=== PATIENT | male | born 1960 | race Caucasian/White ===

== ENCOUNTER 2024-03-25 11:49 | Observation (INO) | payer OTHER, SELFPAY ==
--- NOTE | ~2024-03-25 | MR_ITS ---
EXAMINATION: MR brain/brain stem wo/w con DATE: 03/26/2024 07:59 INDICATION: Intermittent left-sided numbness. TECHNIQUE: Magnetic resonance imaging (MRI) of the brain and brainstem was performed without and with 12 mL MultiHance intravenous contrast. COMPARISON: Head CT 03/25/2024 FINDINGS: There are scattered areas of nonspecific increased T2-weighted signal intensity in the cere bral white matter, deep olvera nuclei, and navi. There is an old infarct in the left thalamus. There is an acute infarct involving the posterior limb right internal capsule and right thalamus. There is an old infarct in the left occipital lobe. There is no intracranial hemorrhage or abnormal intracranial mass lesion. The ventricles are normal in size. The orbits are normal. The paranasal sinuses are zaheer ar. The mastoid air cells are normal. IMPRESSION: 1. Acute infarct involving the posterior limb right internal capsule and right thalamus. 2. Old infarcts in the left thalamus and left occipital lobe. 3. Mild nonspecific cerebral white matter disease and disease of the deep brain nuclei and navi, whic h likely represents chronic small vessel ischemic disease. Reviewed, dictated and finalized at location A. IMPRESSION: 1. Acute infarct involving the posterior limb right internal capsule and right thalamus. 2. Old infarcts in the left thalamus and left occipital lobe. 3. Mild nonspecific cerebral white matter disease and disease of the deep brain nuclei and navi, which likely represents chronic small vessel ischemic disease .
--- NOTE | ~2024-03-25 | CT_ITS ---
EXAMINATION: CTA brain carotid DATE: 03/25/2024 16:29 INDICATION: Transient ischemic attack. TECHNIQUE: Computed tomographic angiography (CTA) of the head was performed with 100 mL Omnipaque-350 intravenous contrast. CTA of the neck was performed with intravenous contrast. Automated exposure co ntrol and iterative reconstruction technique were employed. The dose-length product was 996.21 mGy-cm . Maximum intensity projection and volume rendered 3D-reconstructions were created by the [employer] t on a separate workstation. COMPARISON: Head CT 03/25/2024 FINDINGS: HEAD CTA: There are scattered areas of low attenuation in the cerebral white matter. There is no intr acranial hemorrhage, acute infarction, or abnormal intracranial mass lesion. The ventricles are shubham l in size. There is mild mucosal thickening in the paranasal sinuses. The orbits are normal. The mast oid air cells are normal. The vertebral arteries are codominant. There is no significant stenosis of basilar artery or the posterior cerebral arteries. There is no significant stenosis of the intracrani al internal carotid arteries or anterior or middle cerebral arteries. Anterior communicating artery i s normal. The posterior communicating arteries are normal. There is no aneurysm. NECK CTA: There is mild emphysema. There are no pathologically enlarged lymph nodes. There is no sign ificant stenosis of the vertebral arteries. There is plaque in the proximal internal carotid arteries . There is 0% stenosis of the proximal right internal carotid artery relative to normal distal artery lumen diameter (NASCET criteria). There is 0% stenosis of the proximal left internal carotid artery relative to normal distal artery lumen diameter. There is severe cervical spondylosis. There is anter ior and posterior fusion at C4-C5 and T2-T3. IMPRESSION: 1. Mild nonspecific cerebral white matter disease, which likely represents chronic small vessel ische zachary disease. 2. No aneurysm or significant intracranial arterial stenosis. 3. 0% stenosis of the proximal internal carotid arteries relative to normal distal artery lumen diame ters (NASCET criteria). Reviewed, dictated and finalized at location A. IMPRESSION: 1. Mild nonspecific cerebral white matter disease, which likely represents precision assembler mary small vessel ischemic disease. 2. No aneurysm or significant intracranial arterial stenosis. 3. 0% stenosis of the proximal internal carotid arteries relative to normal dis ezekiel artery lumen diameters (NASCET criteria).
--- NOTE | ~2024-03-25 | CT_ITS ---
EXAMINATION: CT brain wo con DATE: 03/25/2024 13:19 INDICATION: Transient ischemic attack. TECHNIQUE: Computed tomography (CT) of the head was performed without intravenous contrast. The mA wa s adjusted according to patient size. Iterative reconstruction technique was employed. The dose-lengt h product was 605.33 mGy-cm. COMPARISON: Head CT 05/05/2012 FINDINGS: There are scattered areas of low attenuation in the cerebral white matter. There is no intr acranial hemorrhage, acute infarction, or abnormal intracranial mass lesion. The ventricles are shubham l in size. There is mild mucosal thickening in the paranasal sinuses. The orbits are normal. The mast oid air cells are normal. IMPRESSION: 1. Mild nonspecific cerebral white matter disease, which likely represents chronic small vessel ische zachary disease. Reviewed, dictated and finalized at location A. IMPRESSION: 1. Mild nonspecific cerebral white matter disease, which likely represents injection specialist mary small vessel ischemic disease.
--- NOTE | ~2024-03-25 | XR_ITS ---
Clinical Indication: Left-sided weakness PA and lateral views of the chest: Comparison: None Findings: Calcified right midlung granuloma present. The lungs are otherwise clear, without evidence of focal consolidation or pleural effusion. Cardiomediastinal silhouette is within normal limits. Ramon christiano and soft tissues are unremarkable. Impression: No significant abnormality. Reviewed, dictated and finalized at location . Impression: No significant abnormality.
[2024-03-25 11:58] VITALS: BP 157/90; PULSE 81; RESP 22; TEMP 36.7; O2SAT 94
--- NOTE | 2024-03-25 12:01 | ECG_ITS ---
Test Date: 2024-03-25 12:00:40 Measurements Intervals [place] Rate: 75 P: 68 MA: 148 QRS: 41 QRSD: 87 T: 62 QT: 355 QTc: 397 Interpretive Statements SINUS RHYTHM MINIMAL VOLTAGE CRITERIA FOR LVH, CONSIDER NORMAL VARIANT [MEETS CRITERIA IN ONE OF: R(aVL), S(V1), R(V5), R(V5/V6)+S(V1)] No previous ECG available for comparison Electronically Signed On 03-25-2024 18:59:13 CDT by Roverto Cary D.O.
[2024-03-25 12:09] LABS: Glucose Point of Care 103 mg/dl (65-105)
[2024-03-25 12:14] LABS: Basophils Absolute Auto 0.1 K/mm3 (0.0-0.1); Basophils Percent Auto 0.6 % (0.2-1.2); Eosinophils Absolute Auto 0.2 K/mm3 (0-0.3); Eosinophils Percent Auto 2.6 % (0-4.4); Hematocrit 45.4 % (42.0-52.0); Hemoglobin 15.8 g/dL (14.0-18.0); Immature Granulocyte Absolute 0.02 K/mm3 (0.00-0.031); Immature Granulocyte Percent A 0.3 % (0-0.5); Lymphocytes Absolute Auto 3.16 K/mm3 (0.9-3.2); Lymphocytes Percent Auto 40.8 % (18.3-44.2); Mean Corpuscular HGB Conc 34.8 g/dl (32-36); Mean Corpuscular Hemoglobin 33.8 pg (26-34); Mean Corpuscular Volume 97.2 fl (80-100); Mean Platelet Volume 9.2 fl (7.4-10.4); Monocytes Absolute Auto 0.5 K/mm3 (0.1-0.6); Monocytes Percent Auto 6.6 % (2.6-8.5); Neutrophils Absolute Auto 3.8 K/mm3 (1.3-6.7); Neutrophils Percent Auto 49.1 % (45.5-73.1); Platelet Count Result 218 k/mm3 (150-375); Red Blood Count 4.67 M/mm3 (4.6-6.20); Red Cell Distribution Width 13.4 % (11.5-14.5); White Blood Count 7.7 K/mm3 (4.5-10.0)
[2024-03-25 12:23] LABS: Alanine Aminotransferase 14 U/L (6-50); Albumin Level 4.4 g/dL (3.5-5.1); Alkaline Phosphatase 82 U/L (38-126); Anion Gap 6 mmol/L (4-12); Aspartate Amino Transferase 25 U/L (17-59); Bilirubin,Total 0.7 mg/dL (0.2-1.3); Blood Urea Nitrogen 14 mg/dL (9-20); Calcium 9.1 mg/dL (8.4-10.2); Carbon Dioxide 26 mmol/L (22-30); Chloride 104 mmol/L (98-107); Estimated Glomerular Filt Rate > 60; Glucose 106 mg/dL (65-110); Sodium 136 mmol/L (137-145)
[2024-03-25 12:26] LABS: INR 1.1; Prothrombin Time 14.1 Seconds (11.1-14.7)
[2024-03-25 12:27] LABS: Partial Thromboplastin Time 31.4 Seconds (22.3-36.8)
--- NOTE | 2024-03-25 15:16 | PC.NURSE ---
Patient states he is currently feeling tingling from his left elbow down to his fingers at this time. patient states at 1000 this morning he felt numbness and tingling in the left arm and leg and that has since resolved. patient has equal talent acquisition program manager strength and no drift in arms or legs, but states the left foot feels a little heavy .
[2024-03-25 15:17] VITALS: PULSE 64; RESP 19; O2SAT 99
--- NOTE | 2024-03-25 15:31 | ED.GENADULT ---
HPI - General Adult General Chief complaint: Neuro Symptoms/Deficit Stated complaint: neuro symptoms, LNK 1000 this AM Time Seen by Provider: 03/25/24 15:11 History of Present Illness HPI narrative: Patient is a 63-year-old male who presents to the emergency department this afternoon complaining of TIA like symptoms. Patient states that today around 10:00 a.m. he noticed some numbness and tingling to his left upper and lower extremity and his lips. Patient states that this lasted a few minutes and resolved but then came back again approximately 1 hour prior to arrival. Patient admits that he does have a history of a stroke and is supposed to be on a blood thinner, unsure which 1 and admits that he has not taking it in months as he does a lot of hand work using tools and the blood thinner was causing him to bleed a lot due to the frequent cutting his that he gets from his work. Patient states that he is supposed to also be on the aspirin which he takes intermittently but not daily. Patient denies any focal weakness, states that he did have some issues with his balance when he 1st got to the emergency department, denies any wound spinning sensation, denies any headache or changes to his vision. No chest pain or shortness of breath. No nausea or vomiting or abdominal pain. No additional symptoms or concerns at this time. Related Data Allergies Allergy/AdvReac Type Severity Reaction Status Date / Time No Known Allergies Allergy Unknown Unverified 01/10/18 12:00 Review of Systems Review of Systems: All systems are reviewed and are negative unless stated otherwise in the HPI. [facility] Family History Family History Mother Acute myocardial infarction Social History Social History Alcohol intake: current Exam Narrative: General: Alert, awake, afebrile, in no acute distress. HEENT: PERRL, no rhinorrhea, no post nasal drip, oropharynx clear. Cardiovascular: Regular rate and rhythm, no murmurs, rubs or gallops, no peripheral edema. Respiratory: Clear to auscultation bilaterally, no tachypnea, no wheezing, no rhonchi, no rubs, no respiratory distress. Abdomen: Soft, nontender, nondistended, no rebound, no guarding, no peritoneal signs. Musculoskeletal: No joint swelling or deformity, normal muscle tone. Skin: No rashes or petechia, no signs of infection. Neurological: Alert and oriented to person, place, and time. Follows all commands. 5/5 motor strength strength in the bilateral upper and lower extremity, sensation intact in the bilateral lower and upper extremity, cranial nerves 2-12 grossly intact, speech is clear and fluent. Course Vital Signs Vital signs: Vital Signs Temperature 98.1 F 03/25/24 11:58 Pulse Rate 81 03/25/24 11:58 Respiratory Rate 22 H 03/25/24 11:58 Blood Pressure 157/90 H 03/25/24 11:58 Pulse Oximetry 94 03/25/24 11:58 Temperature 98.1 F 03/25/24 11:58 Pulse Rate 64 03/25/24 15:17 Respiratory Rate 19 03/25/24 15:17 Blood Pressure 157/90 H 03/25/24 11:58 Pulse Oximetry 99 03/25/24 15:17 Medical Decision Making [facility] Narrative Medical decision making narrative: The patient was evaluated by myself in the emergency department. History is obtained from patient who is an independent historian and physical exam was performed. External medical records were reviewed at this time. IV was established and pertinent tests were ordered. EKG was obtained which revealed sinus rhythm rate of 75 beats per minute, no evidence of acute ischemia. EKG was independently interpreted by me and is currently pending official cardiology read. Laboratory results obtained revealing no acute process. Imaging studies obtained included CT brain without IV contrast and portable chest x-ray which was independently interpreted by me revealing no acute process, which is pending final r
[2024-03-25 16:52] LABS: Add Urine Microscopic? YES; Appearance Urine Clear (Clear); Bacteria Urine None Seen /hpf; Bilirubin Urine Negative (Negative); Blood Urine Negative (Negative); Color Urine Dark Yellow (Yellow); Glucose Urine UA Negative (Negative); Hyaline Casts Urine Present /lpf; Ketones Urine Trace mg/dL (Negative); Leukocyte Esterase Ur Negative LEU/UL (Negative); Nitrate Urine Negative (Negative); Non Pathogenic Casts 0-2; Protein Urine Trace mg/dL (Negative); Squamous Epithelial Cell Urine None Seen /hpf (Few); WBC Urine 0-5 /hpf (0-3); pH Urine 5.5 (5.0-9.0)
[2024-03-25] MEDS: ASPIRIN 81 MG CHEWABLE TABLET 324 MG PO (17:14)
--- NOTE | 2024-03-25 18:00 | ADMGEN ---
This patient, Cooper Don, was admitted to Medical Room 343-01. Patient/family oriented to hospital policies and general routines including ID bracelet, bed and alarms, visiting hours, pain management, procedures, bathroom and other care routines, personal items, smoking policy, room service/diet, and visiting hours. Information on how to activate the Rapid Response Team has been discussed. Patient/Family are encouraged to report perceived risks to care and to ask questions if they do not understand what they are told or what they should do.
[2024-03-25 18:30] VITALS: BMI 22.2
[2024-03-25 18:38] VITALS: BP 136/73; PULSE 76; RESP 18; TEMP 36.8; O2SAT 100; BMI 20.5
[2024-03-25 20:00] VITALS: PULSE 75
--- NOTE | 2024-03-25 21:01 | PM.IMHP ---
H&P: HPI History of Present Illness Date/Time: 03/25/24 21:01 Chief Complaint: Focal Numbness Narrative: 63 y/o M presents here with intermittent left sided numbness with PMH of CVA (2022 or 2021, no residual deficits), HLD, BPH, and kidney stones. The patient presents here from home for further evaluation of left-sided numbness and tingling. Patient reports initially developing oral numbness and instability while standing at 10:00 am, symptoms lasted for less than 5 minutes and resolved without intervention. Then around 11:20 am he developed the oral numbness and dizziness that was worse than initial episode. Patient then became concerned and alerted his family member to his symptoms who drove him to the hospital. Patient reports he arrived here around 11:45. While exiting the vehicle he was very off balance and his daughter had to catch him/steady him. While in waiting room he was able to ambulate to the restroom without difficulty. During ED evaluation the numbness spread to his entire right upper extremity and whole right lower extremity. Symptoms would intermittently resolve, but never completely. Currently experiencing difficulty with balance, left hip and calf numbness. Patient also having a difficult time gripping items in his left hand. Denies dysarthria, vision changes, or headache. Initial VS at presentation: 98.1? F, HR 81, RR 22, 157/90, and 94% on RA. ED workup showed: No leukocytosis, no anemia, normal coags, no significant electrolyte derangements, creatinine 0.9 and GFR >60, UA showed trace ketones and 3-5 RBC otherwise unremarkable. CXR showed no significant abnormality. Head CT showed mild nonspecific cerebral white matter disease. CTA of the head/neck showed mild nonspecific cerebral white matter disease, no aneurysm or significant intracranial arterial stenosis, and serous % stenosis of the proximal ICAs. Review of Systems Review of Systems: All systems reviewed & are unremarkable except as noted in HPI and below PMFSH Past Medical History Medical History BPH (benign prostatic hyperplasia) CVA (cerebral vascular accident) HLD (hyperlipidemia) Kidney stones TIA (transient ischemic attack) Family History Family History Mother Acute myocardial infarction Father Social History Social History Smoking packs per day: 1 Smoking cigarettes per day: 20.0 Years smoked: 50 Smoking pack-years: 50.00 Smoking status: Current every day smoker Tobacco type: cigarettes Alcohol intake: current Substance use: current Substance use type: marijuana and inhalants Last use: 03/25/24 Do You Feel Safe in your Home?: Yes Lack of Transportation: No Lack of Food: Never True Current Housing: I Have Housing Concerned About Future Housing: No Difficulty Paying Gas/Electric Bills: No Difficulty Paying for Meds: No Currently Unemployed: No Education: High School Diploma/GED Difficulty w/ Childcare or Family Care: No Spiritual care concerns: No Meds Home Medications and Allergies Home Medications Medication Instructions Recorded Confirmed Type No Home Medications 03/25/24 03/25/24 History Allergies Allergy/AdvReac Type Severity Reaction Status Date / Time No Known Allergies Allergy Unknown Unverified 01/10/18 12:00 Vital Signs Vital Signs - 24 hr 03/25/24 11:58 03/25/24 15:17 03/25/24 18:38 Temperature 98.1 F 98.3 F Pulse Rate 81 64 76 Respiratory Rate 22 H 19 18 Blood Pressure 157/90 H 136/73 Pulse Oximetry 94 99 100 Oxygen Delivery 03/25/24 18:45 Temperature Pulse Rate Respiratory Rate Blood Pressure Pulse Oximetry Oxygen Delivery Room Air Exam Const: General: comfortable and no acute distress Other: , male, nontoxic appearance
[2024-03-25 21:55] VITALS: BP 149/85; PULSE 95; RESP 20; TEMP 36.8; O2SAT 95
[2024-03-25] MEDS: NICOTINE (*PBKC) 14 MG PATCH 1 PATCH TRANSDERM (22:23)
[2024-03-25 22:47] VITALS: O2SAT 95
[2024-03-26] VITALS: PULSE 73
[2024-03-26 01:03] LABS: Hemoglobin A1C 5.5 % (<5.7)
[2024-03-26 04:00] VITALS: PULSE 67
[2024-03-26 05:51] LABS: Basophils Absolute Auto 0.1 K/mm3 (0.0-0.1); Basophils Percent Auto 0.7 % (0.2-1.2); Eosinophils Absolute Auto 0.3 K/mm3 (0-0.3); Eosinophils Percent Auto 4.6 % (0-4.4); Hematocrit 43.8 % (42.0-52.0); Hemoglobin 15.1 g/dL (14.0-18.0); Immature Granulocyte Absolute 0.02 K/mm3 (0.00-0.031); Immature Granulocyte Percent A 0.3 % (0-0.5); Lymphocytes Absolute Auto 3.28 K/mm3 (0.9-3.2); Lymphocytes Percent Auto 45.9 % (18.3-44.2); Mean Corpuscular HGB Conc 34.5 g/dl (32-36); Mean Corpuscular Hemoglobin 33.6 pg (26-34); Mean Corpuscular Volume 97.3 fl (80-100); Mean Platelet Volume 9.5 fl (7.4-10.4); Monocytes Absolute Auto 0.6 K/mm3 (0.1-0.6); Monocytes Percent Auto 7.7 % (2.6-8.5); Neutrophils Absolute Auto 2.9 K/mm3 (1.3-6.7); Neutrophils Percent Auto 40.8 % (45.5-73.1); Platelet Count Result 215 k/mm3 (150-375); Red Cell Distribution Width 13.4 % (11.5-14.5); White Blood Count 7.1 K/mm3 (4.5-10.0)
[2024-03-26 06:00] VITALS: BP 159/79; PULSE 73; RESP 20; TEMP 36.6; O2SAT 99
[2024-03-26 06:01] LABS: Alanine Aminotransferase 12 U/L (6-50); Alkaline Phosphatase 80 U/L (38-126); Anion Gap 8 mmol/L (4-12); Aspartate Amino Transferase 23 U/L (17-59); Bilirubin,Total 0.5 mg/dL (0.2-1.3); Blood Urea Nitrogen 13 mg/dL (9-20); Calcium 8.9 mg/dL (8.4-10.2); Carbon Dioxide 23 mmol/L (22-30); Chloride 102 mmol/L (98-107); Cholesterol 191 mg/dL (0-200); Estimated CRCL calculation 70 ml/min; Estimated Glomerular Filt Rate > 60; Glucose 102 mg/dL (65-110); HDL Direct 57 mg/dL; Potassium 3.7 mmol/L (3.4-5.0); Sodium 133 mmol/L (137-145); Triglycerides 69 mg/dL (<150)
[2024-03-26 06:12] LABS: LDL Cholesterol Direct 119 mg/dL
--- NOTE | 2024-03-26 08:46 | PM.IMPN ---
Progress Note: A&P Assessment and Plan (1) TIA (transient ischemic attack): Code(s): G45.9 - Transient cerebral ischemic attack, unspecified Status: Acute Assessment and Plan: 03/26/24: New deficits of left-sided numbness, left upper extremity ataxia, and dizziness, balance issues starting at 10:00 a.m. today, 03/25/2024. Symptoms have been waxing and waning, however patient reports that symptoms never fully dissipated. (copied from the chart) Patient not a candidate for tPA due to being out of the window upon arrival CT of the head showed mild nonspecific cerebral white matter disease representing chronic small-vessel ischemic disease Head/neck CTA shown 0% stenosis in bilateral and internal carotid arteries, no aneurysm or significant intracranial stenosis, mild nonspecific cerebral white matter disease likely representing chronic small-vessel ischemic disease. Brain MRI showed acute infarct involving the posterior limb, right internal capsule, and right thalamus, old infarcts in the left thalamus and left occipital lobe, mild nonspecific cerebral white matter disease and disease of the deep brain nuclei and navi representing chronic small-vessel ischemic disease Continue atorvastatin 80 mg, Plavix, and baby aspirin Neuro consulted PT and OT ordered Continue neuro checks q.4 hour Echo with bubble study shown normal LV systolic function with estimated EF of 60-65%, LV diastolic function was normal. Negative bubble study. Continue cardiac monitoring Will obtain lipid panel today (2) HLD (hyperlipidemia): Code(s): E78.5 - Hyperlipidemia, unspecified Status: Acute Assessment and Plan: See above (3) Tobacco abuse: Code(s): Z72.0 - Tobacco use Status: Acute Assessment and Plan: 03/26/24: Nicotine patch and Wellbutrin ordered Time Spent With Patient Time with patient: Greater than 35 minutes Subjective Date/time seen: 03/26/24 08:46 Interval history: Interval history: This is a 63 year old male with a significant past medical history of CVA who presented to the hospital with oral numbness and instability with standing that lasted a few minutes and resolved without intervention. Later he developed oral numbness and dizziness again that was worse than initial episode. He then came to hospital for further evaluation. Workup in the hospital included a chest x-ray which was negative. Head CT which showed mild nonspecific cerebral white matter disease representing chronic small-vessel ischemic disease. Head/neck CTA revealed 0% stenosis in bilateral internal carotid arteries, no aneurysm or intracranial arterial stenosis, showed mild nonspecific cerebral white matter disease representing chronic small-vessel ischemic disease. MRI of the brain shows acute infarct involving the posterior limb right internal capsule and right thalamus, old infarct in the left thalamus and left occipital lobe, mild nonspecific cerebral white matter disease and disease of the deep olvera nuclei and navi representing chronic small vessel ischemic disease. Initial labs were essentially unremarkable other than a sodium level of 136. UA was obtained which showed trace ketones, 3-5 urine RBC otherwise unremarkable. EKG showed sinus rhythm with a rate of 75, QTC 397. Patient was given a dose of aspirin 325 mg, Plavix 75 mg, atorvastatin 80 mg while in the ED. Neurology consulted. 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 Patient denies any fever, chills, nausea, vomiting, diarrhea, abdominal pain, chest pain, shortness of breath, headache, lightheadedness, dizziness, vision changes, weakness, or loss of sensation. Patient endorses that he felt like his lips, left arm, and left leg were numb with associated dizziness initially however those symptoms are resolved now. Review of Systems Review of Systems: All systems reviewed & are unremarkable except as noted in HPI and below Constitutional: Constitutional:
[2024-03-26] MEDS: ASPIRIN 81 MG ENTERIC TABLET PO (09:35)
[2024-03-26] MEDS: ATORVASTATIN 40 MG TABLET 80 MG PO (09:36)
[2024-03-26] MEDS: CLOPIDOGREL BISULFATE 75 MG TABLET PO (09:36)
[2024-03-26] MEDS: NICOTINE (*PBKC) 14 MG PATCH 1 PATCH TRANSDERM (09:37)
[2024-03-26 12:00] VITALS: PULSE 69
[2024-03-26] MEDS: buPROPion HCL XL (24 HR) 150 MG TABCR PO (12:42)
--- NOTE | 2024-03-26 13:30 | PM.DS ---
DS: Admitting Diagnosis Discharge Date 03/26/24 Admitting Diagnosis TIA DS: Discharge Diagnosis Discharge Diagnosis (1) TIA (transient ischemic attack): Code(s): G45.9 - Transient cerebral ischemic attack, unspecified Status: Acute (2) HLD (hyperlipidemia): Code(s): E78.5 - Hyperlipidemia, unspecified Status: Acute (3) Tobacco abuse: Code(s): Z72.0 - Tobacco use Status: Acute DS: Summary Hospital Course Reason for hospitalization: TIA Hospital Course: This is a 63 year old male with a significant past medical history of CVA who presented to the hospital with oral numbness and instability with standing that lasted a few minutes and resolved without intervention. Later he developed oral numbness and dizziness again that was worse than initial episode. He then came to hospital for further evaluation. Workup in the hospital included a chest x-ray which was negative. Head CT which showed mild nonspecific cerebral white matter disease representing chronic small-vessel ischemic disease. Head/neck CTA revealed 0% stenosis in bilateral internal carotid arteries, no aneurysm or intracranial arterial stenosis, showed mild nonspecific cerebral white matter disease representing chronic small-vessel ischemic disease. MRI of the brain shows acute infarct involving the posterior limb right internal capsule and right thalamus, old infarct in the left thalamus and left occipital lobe, mild nonspecific cerebral white matter disease and disease of the deep olvera nuclei and navi representing chronic small vessel ischemic disease. Initial labs were essentially unremarkable other than a sodium level of 136. UA was obtained which showed trace ketones, 3-5 urine RBC otherwise unremarkable. EKG showed sinus rhythm with a rate of 75, QTC 397. Patient was given a dose of aspirin 325 mg, Plavix 75 mg, atorvastatin 80 mg while in the ED. Neurology consulted. 03/26/24: Labs and imaging reviewed. Patient denies any fever, chills, nausea, vomiting, diarrhea, abdominal pain, chest pain, shortness of breath, headache, lightheadedness, dizziness, vision changes, weakness, or loss of sensation. Patient endorses that he felt like his lips, left arm, and left leg were numb with associated dizziness initially however those symptoms are resolved now. Spoke with Dr. Camacho and agrees to see the patient on an ouotpatient basis. He agrees with current course. Patient is stable for discharge at this time. Final diagnosis: CVA Status at Discharge Cognitive/behavioral status at discharge: Alert and oriented x3 Functional status at discharge: independent ambulation Overall status at discharge: patient is progressing back to baseline Time Spent with Patient Time attestation: Total time spent providing and/or coordinating discharge services: Time spent: Greater than 30 minutes Exam Narrative: General: In no acute distress, well nourished Head: atraumatic, no encephalopathy, denies lightheadedness or dizziness Eyes: EOMI, PERRLA, sclera clear, no vision changes ENT: moist mucous membranes, nasal passages clear Neck: supple, no JVD, no adenopathy, trachea midline Cardiac: Normal S1 and S2. RRR, No murmur, gallops or friction rubs, peripheral pulses intact. Respiratory: Lungs clear to auscultation, no adventitious lung sounds, currently on room air Gastrointestinal: soft, non-distended, non-tender, normoactive bowel sounds. : voiding without difficulty. Extremities: moves all extremities well, no edema, good ROM, strength 5/5 Skin: clean, dry, intact. No wounds or lesions. Neuro: Alert and oriented x4, cranial nerves intact, no neuro deficits, no facial droop, no slurred speech. Psych: normal mood, normal affect, interactive DS: Data Data Completed and Pending Completed studies during hospitalization: Chest x-ray Head CT Head/neck CTA Brain MRI Pending studies at discharge: None Labs on day of discharge: Labs from last 24 h
--- NOTE | 2024-03-26 13:50 | PCOTNOTE ---
Attempted OT evaluation; per RN pt. is independent and currently being discharged home. No OT evaluation needed.
--- NOTE | 2024-03-26 21:07 | ECHO_ITS ---
Patient Info Name: Cooper Don Age: 63 years : 1960 Gender: Male Ht: 68 in Wt: 140 lbs BSA: 1.74 m2 HR: 73 bpm BP: 159 / 79 mmHg Heart Rhythm: Sinus Rhythm Technical Quality: Good Exam Date: 03/26/2024 8:43 AM Exam Location: Echo Lab Patient Status: Outpatient Admit Date: 03/25/2024 Staff Ordering Physician: Tila Blum APRN Power Cutting Machine Operator: Erlinda Farrar RDCS Attending Provider: Ace Fry MD Referring Physician: Kulwant STEIN; Exam Type: CA echo doppler w bubble study Study Info Indications - intermittent left side numbness, c/f CVA v TIA Complete two-dimensional, color flow and Doppler transthoracic echocardiogram is performed with agitated saline. Summary 1. Unremarkable 2D/Doppler echocardiogram. 2. Agitated saline contrast injection demonstrates no intracardiac shunt. Left Ventricle Left ventricular chamber dimension is normal. Left ventricular systolic function is normal, estimated at 60-65%. The left ventricular diastolic function is normal. Right Ventricle Right ventricular chamber dimension is normal. Left Atria Left atrial chamber dimension is normal. Right Atria Right atrial chamber dimension is normal. Atrial Septum Intact interatrial septum visualized by agitated saline imaging. Aortic Valve The aortic valve is normal. Pulmonic Valve The pulmonic valve is normal. Mitral Valve The mitral valve has normal leaflets. Tricuspid Valve The tricuspid valve leaflets are normal. Pericardium/Pleural The pericardium appears normal. Aorta The aortic root size at the sinus of Valsalva is normal. Left Ventricular Outflow Tract Name Value Normal LVOT 2D LVOT Diameter 1.8 cm LVOT Doppler LVOT Peak Gradient 3 mmHg LVOT Mean Gradient 1 mmHg LVOT VTI 19 cm LVOT VTI/AV VTI Ratio 0.6 LVOT Stroke Volume 50 ml LVOT CO 3.2 l/min LVOT CI 1.8 l/min/m2 Mitral Valve Name Value Normal MV Doppler MV Decel [place] 182 cm/s2 MV PHT 86 ms MV Area (PHT) 2.5 cm2 4.0-5.0 MV Diastolic Function MV E Peak Velocity 54 cm/s MV A Peak Velocity 52 cm/s MV E/A 1.0 MV Decel Time 298 ms MV Annular TDI MV E/e' (Septal) 5.7 <=8.0 MV E/e' (Lateral) 5.4 <=8.0 MV E/e' (Average) 5.6 Tricuspid Valve Name
== END 2024-03-26 14:29 | disposition home or self-care (01) ==
LOC: ANHED 17:27 → ANH3MED 18:00
PROVIDERS: Emergency Medicine; Student in an Organized Health Care Education/Training Program; Admitting Provider Internal Medicine; Emergency Provider Emergency Medicine; PCP Emergency Medicine; Visit Provider Internal Medicine
DX: G45.9 Transient cerebral ischemic attack, unspecified (principal); R29.703 NIHSS score 3; E78.5 Hyperlipidemia, unspecified; N40.0 Benign prostatic hyperplasia without lower urinary tract symptoms; F17.210 Nicotine dependence, cigarettes, uncomplicated; F12.90 Cannabis use, unspecified, uncomplicated; Z87.442 Personal history of urinary calculi; Z86.73 Personal history of transient ischemic attack (TIA), and cerebral infarction without residual deficits; Z91.148 Patient's other noncompliance with medication regimen for other reason
CPT/HCPCS: 36415; 70450; 70496; 70498; 70553; 71046; 80053; 80061; 81001; 82948; 83036; 85025; 85610; 85730; 93005; 93306; 96375; 97161; 99285; A9270; A9577; G0378; G0379; Q9967